=== PATIENT | male | born 1970 | race African-American/Black ===

== ENCOUNTER 2019-03-09 13:55 | Emergency (ER) | payer SELFPAY ==
[~2019-03-09] VITALS: Ht 190.5 cm; Wt 100.0 kg
[2019-03-09] MEDS ORDERED: SODIUM CHLORIDE 0.9% 1,000 ML IV ONE (14:28)
[2019-03-09 14:37] LABS: BASOPHILS % 0.4 % (0.0-2.0); EOSINOPHILS % 1.4 % (0.0-5.0); HEMATOCRIT. 38.2 % (42.0-52.0); HEMOGLOBIN. 13.1 g/dL (14.0-18.0); LYMPHOCYTES % 42.9 % (20.0-50.0); MEAN CORPUSCULAR HEMOGLOBIN 33.4 pg (28.0-32.0); MEAN CORPUSCULAR VOLUME 97.1 fL (80.0-94.0); MEAN PLATELET VOLUME 8.8 fl (7.4-10.4); MONOCYTES % 7.4 % (2.0-8.0); NEUTROPHILS % 47.9 % (40.0-76.0); PLATELET 208 x1000/uL (130-400); RED BLOOD CELL COUNT 3.94 mill/uL (4.7-6.1); RED CELL DISTRIBUTION WIDTH 12.4 % (11.6-14.6)
[2019-03-09 14:42] LABS: CHLORIDE 108 mEq/L (98-107)
[2019-03-09] MEDS ORDERED: IBUPROFEN 600MG TABLET PO ONE (17:00)
[2019-03-09 17:33] VITALS: BP 136/84
== END 2019-03-09 17:39 | disposition home or self-care (01) ==
LOC: ER 14:09
DX: R55 Syncope and collapse (principal)
CPT/HCPCS: 36415; 80053; 84484; 85025; 93005; 99284; J7030